=== PATIENT | female | born 1970 | race Caucasian/White ===

== ENCOUNTER 2019-02-21 22:35 | Inpatient (IN) | payer BC ==
[~2019-02-21] VITALS: Ht 165.1 cm; Wt 68.5 kg
--- NOTE | 2019-02-21 22:35 | NUR ---
PT TO ER C/O HIGH BP X 5 DAYS. PT SBP NOTED >180 DR FLETCHER NOTIFIED. PT CHANGED INTO GOWN AND CONNECTED TO MONITOR/ PT DENIES ANY CHEST PAIN, SKIN WARM AND DRY. PT C/O PAIN TO ABDOMINE SURGICAL SITE. NO BLEEDING NOTED. WILL CONT TO MONITOR PT.
[2019-02-21] MEDS ORDERED: hydrALAZINE HCL IV 20 MG VIAL IV ONE (23:30)
[2019-02-21] MEDS ORDERED: hydrALAZINE HCL IV 20 MG VIAL ONE (23:36)
[2019-02-21 23:48] LABS: BASOPHILS % (AUTO) 0.2 % (0.0-2.0); EOSINOPHILS % (AUTO) 0.5 % (0.0-6.0); HEMATOCRIT 34 % (33-45); HEMOGLOBIN 11.1 g/dL (11.5-14.8); LYMPHOCYTES # (AUTO) 0.9 /CMM (0.8-4.8); LYMPHOCYTES % (AUTO) 6.6 % (20.0-44.0); MEAN CORPUSCULAR HGB CONC 33 g/dl (31.0-36.0); MEAN CORPUSCULAR VOLUME 90 fL (82-100); MONOCYTES # (AUTO) 1.3 /CMM (0.1-1.30); MONOCYTES % (AUTO) 10.2 % (2.0-12.0); NEUTROPHILS # (AUTO) 10.9 /CMM (1.8-8.9); NEUTROPHILS % (AUTO) 82.5 % (43.0-81.0); PLATELET COUNT (AUTO) 475 /CMM (150-450); RED BLOOD CELL COUNT(AUTO) 3.77 MIL/uL (4.0-5.2); WHITE BLOOD COUNT (AUTO) 13.2 K/uL (4.3-11.0)
[2019-02-21 23:54] LABS: CALCIUM, SERUM 8.5 mg/dL (8.5-10.1); CREATININE 0.6 mg/dL (0.6-1.3); POTASSIUM 4.4 mmol/L (3.5-5.1)
[2019-02-22 00:10] LABS: ALBUMIN 2.8 g/dL (3.4-5.0); BILIRUBIN,TOTAL 0.4 mg/dL (0.2-1.0); TOTAL PROTEIN, SERUM 7.3 g/dL (6.4-8.2)
[2019-02-22] MEDS ORDERED: ASPIRIN 81 MG TAB.CHEW PO ONE (00:30)
[2019-02-22] MEDS ORDERED: ASPIRIN 81 MG TAB.CHEW ONE (01:03)
[2019-02-22] MEDS ORDERED: KETOROLAC TROMETHAMINE INJ 30 MG/ML VIAL ONE (01:15)
[2019-02-22] MEDS ORDERED: hydrALAZINE HCL IV 20 MG VIAL IV PRN (03:00)
[2019-02-22] MEDS ORDERED: ACETAMINOPHEN 325 MG TABLET PO PRN (03:00)
[2019-02-22] MEDS ORDERED: MORPHINE SULFATE INJ 2 MG/ML DISP.SYRIN IV PRN (03:00)
[2019-02-22] MEDS ORDERED: MAG HYDROX/AL HYDROX/SIMETH 30 ML UDC PO PRN (03:00)
[2019-02-22] MEDS ORDERED: TEMAZEPAM 15 MG CAPSULE PO PRN (03:00)
[2019-02-22] MEDS ORDERED: ONDANSETRON HCL/PF 4 MG/2 ML VIAL IVP PRN (03:00)
[2019-02-22] MEDS ORDERED: MAGNESIUM HYDROXIDE 30 ML UDC PO PRN (03:00)
--- NOTE | 2019-02-22 03:15 | NUR ---
PT RESTING COMFORTABLY IN [facility]. NO SIGNS OF DISTRESS NOTED. WILL CONTINUE TO MONITOR PT.
--- NOTE | 2019-02-22 03:18 | NUR ---
URINE COLLECTED AND SENT TO LAB
[2019-02-22 03:45] LABS: APPEARANCE,URINE Clear (CLEAR); BILIRUBIN,URINE Negative (NEGATIVE); BLOOD, URINE Negative Ery/uL (NEGATIVE); COLOR,URINE Yellow (YELLOW); KETONES,URINE >=160 (NEGATIVE); LEUKOCYTE ESTERASE ,URINE Negative (NEGATIVE); NITRITE, URINE Negative (NEGATIVE); PROTEIN,URINE Trace mg/dl (NEGATIVE); UGLUCOSE Negative (NEGATIVE); UROBILINOGEN,URINE 0.2 EU/dL (0.2)
[2019-02-22 03:56] LABS: BACTERIA,URINE None seen /HPF (None Seen); RBC,URINE 0-2 /HPF (0-2); WBC,URINE 0-2 /HPF (0-3)
[2019-02-22 03:57] LABS: SQUAMOUS EPITHELIAL CELL,UR Moderate /HPF (None Seen)
--- NOTE | 2019-02-22 05:26 | NUR ---
BED 113-1
[2019-02-22 05:48] VITALS: BP 151/77
--- NOTE | 2019-02-22 05:52 | NUR ---
PT TRANSFERED TO [facility] VIA [facility]. ACLS PROTOCOL
--- NOTE | 2019-02-22 06:00 | NUR ---
TELE ADMISSION NOTE PATIENT RECEIVED IN [facility]. PATIENT ABLE TO WALK TO BED, GAIT STEADY. PATIENT A/O X 4. SR HR IN THE 90'S ON THE MONITOR. PATIENT DENIES SOB// INCREASED WOB. PATIENT C/O MILD CHEST PAIN 3/10 LIKE A SMALL HAMSTER SITTING ON HER CHEST. IT DOES NOT RADIATE. PATIENT HAS L HAND 20 G RUNNING 75 ML/HR. NO S/S OF INFILTRATION/INFECTION. PATIENT V/S STABLE. PATIENT C/O MILD ABD PAIN RELATED TO AMBULATING TO THE BED. PATIENT ORIENTED TO THE UNIT CARE PLAN DISCUSSED GOALS IMITATED. SAFETY PRECAUTIONS IN PLACE. CALL LIGHT USE INSTRUCTED RN WILL ENDORSE TO AM POC FOR EDOUARD.
[2019-02-22 06:13] LABS: THYROID STIMULATING HORMONE 1.483 uIU/mL (0.358-3.74)
[2019-02-22] MEDS: IV NS 0.9% 1,000 ML IV PRN ×2 (06:14→17:17)
--- NOTE | 2019-02-22 07:30 | NUR ---
TELE EN AM NOTES PATIENT IN BED, AAO X 4, ON ROOM AIR, NO SOB, NOT IN ANY DISTRESS, SR HR 91 ON MONITOR. WITH 2/10 TOLERABLE PAIN AT ABDOMEN, SURGICAL SITE [S/P HYSTERECTOMY February], AGGRAVATED MORE ON AMBULATING. NS AT 75 ML/HR RUNNING TO LEFT HAND G 20, SITE CLEAR, NO SKIN ISSUES. NPO FOR NOW UNTIL SEEN BY SUPERVISOR SAMPLE. BRP, CALL IGHT WITHIN REACH, CARE PLAN DISCUSSED WITH PATIENT VERBALIZED UNDERSTANDING. SAFETY PRECAUTIONS IN PLACE. WILL CONTINUE TO MONITOR.
[2019-02-22 08:00] VITALS: BP 137/82
[2019-02-22] MEDS ORDERED: OXYC-162 PO (08:27)
[2019-02-22] MEDS ORDERED: DOCU-141 PO (08:27)
[2019-02-22] MEDS: PANTOPRAZOLE 40 MG TABLET.DR PO SCH (08:51)
[2019-02-22] MEDS: CARVEDILOL 3.125 MG TABLET PO SCH ×2 (08:51→17:18)
--- NOTE | 2019-02-22 09:30 | NUR ---
IRRIGATION TAX ASSESSOR COLLECTOR NOTES DUE MEDS GIVEN
[2019-02-22 12:00] VITALS: BP_SYST 140; BP_SYST 161; BP_DIAS 80; BP_DIAS 96
--- NOTE | 2019-02-22 12:10 | NUR ---
AGRICULTURE SCIENTIST NOTES DR. SHEEHAN AT BEDSIDE EARLIER.
[2019-02-22 12:36] LABS: IRON, SERUM 16 ug/dl (50-175); TOTAL IRON BINDING CAPACITY 366 ug/dl (250-450)
[2019-02-22 12:54] LABS: FERRITIN 85 ng/mL (8-388)
[2019-02-22 16:00] VITALS: BP 156/73
[2019-02-22] MEDS ORDERED: DOCUSATE SODIUM 100 MG CAPSULE PO PRN (17:00)
[2019-02-22] MEDS ORDERED: BISACODYL SUPP (10 MG) 10 MG/SUPP.RECT SUPP.RECT RC PRN (17:00)
[2019-02-22] MEDS ORDERED: SENNOSIDES 8.6 MG TABLET PO PRN (17:00)
--- NOTE | 2019-02-22 18:42 | NUR ---
BYPRODUCTS EXTRACTOR CLOSING NOTES PATIENT RESTING IN BED, AAO X 4, ON ROOM AIR, NO SOB, NOT IN ANY DISTRESS, SR HR 91 ON MONITOR. WITH 2/10 TOLERABLE PAIN AT ABDOMEN, SURGICAL SITE [S/P HYSTERECTOMY February], AGGRAVATED MORE BY AMBULATING. NS AT 75 ML/HR RUNNING TO LEFT HAND G 20, SITE CLEAR, CARDIAC DIET. BRP, CALL LIGHT WITHIN REACH, SAFETY PRECAUTIONS IN PLACE. ALL NEEDS MET. NO OTHER SIGNIFICANT CHANGE IN CONDITION. WILL ENDORSE TO NEXT SHIFT FOR EDOUARD.
[2019-02-22 20:00] VITALS: BP 156/83
--- NOTE | 2019-02-22 20:00 | NUR ---
MS RN NOTE PT IN BED AWAKE. A/O X 4, NO SOB, NO DISTRESS OR DISCOMFORT NOTED. DENIES PAIN. SURGICAL SITE WITH STERI STRIPE INTACT. ALL NEEDS ATTENDED. SIDE RAILS UP X 2 AND CALL LIGHT WITHIN REACH. CONTINUE TO MONITOR.
--- NOTE | 2019-02-22 20:00 | NUR ---
LOCOMOTIVE ENGINEER NOTE ON TELE MONITOR SR HR 89.
--- NOTE | 2019-02-22 21:30 | NUR ---
MS RN NOTE PT C/O PAIN IN LOWER ABD 04/28 AND ALSO C/O INSOMNIA. NORCO 1 TAB PO GIVEN FOR PAIN AND RESTORIL 15 MG PO GIVEN FOR SLEEP. CONTINUE TO MONITOR.
[2019-02-22] MEDS: HYDROCODONE/APAP 5/325MG 1 EACH TABLET PO PRN (21:32)
--- NOTE | 2019-02-22 22:30 | NUR ---
MS RN NOTE PAIN SUBSIDED 2/10 AND PT IS FALLING ASLEEP. NO DISTRESS OR DISCOMFORT NOTED.
[2019-02-23] VITALS: BP 141/79
[2019-02-23] MEDS: HYDROCODONE/APAP 5/325MG 1 EACH TABLET PO PRN ×2 (02:51→12:30)
[2019-02-23 04:00] VITALS: BP 120/64
[2019-02-23 06:27] LABS: BASOPHILS % (AUTO) 0.3 % (0.0-2.0); EOSINOPHILS % (AUTO) 1.6 % (0.0-6.0); HEMATOCRIT 31 % (33-45); HEMOGLOBIN 10.4 g/dL (11.5-14.8); LYMPHOCYTES # (AUTO) 0.9 /CMM (0.8-4.8); LYMPHOCYTES % (AUTO) 8.2 % (20.0-44.0); MEAN CORPUSCULAR HGB CONC 33 g/dl (31.0-36.0); MEAN CORPUSCULAR VOLUME 89 fL (82-100); MONOCYTES # (AUTO) 1.1 /CMM (0.1-1.30); MONOCYTES % (AUTO) 9.6 % (2.0-12.0); NEUTROPHILS # (AUTO) 8.8 /CMM (1.8-8.9); NEUTROPHILS % (AUTO) 80.3 % (43.0-81.0); PLATELET COUNT (AUTO) 427 /CMM (150-450); RED BLOOD CELL COUNT(AUTO) 3.53 MIL/uL (4.0-5.2)
--- NOTE | 2019-02-23 06:34 | NUR ---
MS RN NOTE PT IN BED AWAKE, C/O PAIN IN LOWER ABD, NORCO 1 TAB PO GIVEN. FOR PAIN. IVF INFUSING WELL, NO S/S OF INFILTRATION NOTED. ALL NEEDS ATTENDED. SIDE RAILS UP X 2 AND CALL LIGHT WITHIN REACH. WILL ENDORSE TO DAY SHIFT NURSE FOR CONTINUE TO CARE.
[2019-02-23 06:57] LABS: ALBUMIN 2.3 g/dL (3.4-5.0); BILIRUBIN,TOTAL 0.3 mg/dL (0.2-1.0); CALCIUM, SERUM 8.5 mg/dL (8.5-10.1); CREATININE 0.5 mg/dL (0.6-1.3); MAGNESIUM 2.2 mg/dL (1.8-2.4); PHOSPHORUS 2.8 mg/dL (2.5-4.9); POTASSIUM 3.8 mmol/L (3.5-5.1); TOTAL PROTEIN, SERUM 6.2 g/dL (6.4-8.2)
--- NOTE | 2019-02-23 07:30 | NUR ---
DIRECTOR TALENT AM NOTES PATIENT IN BED, AAO X 4, ON ROOM AIR, NO SOB, NOT IN ANY DISTRESS, SR HR 82 ON MONITOR. WITH 2/10 TOLERABLE PAIN AT ABDOMEN, SURGICAL SITE [S/P HYSTERECTOMY February], AGGRAVATED MORE ON AMBULATING. NS AT 75 ML/HR RUNNING TO LEFT HAND G 20, SITE CLEAR, NO SKIN ISSUES. CARDIAC DIET. BRP, CALL IGHT WITHIN REACH, CARE PLAN DISCUSSED WITH PATIENT VERBALIZED UNDERSTANDING. SAFETY PRECAUTIONS IN PLACE. WILL CONTINUE TO MONITOR.
[2019-02-23 08:00] VITALS: BP 151/81
[2019-02-23] MEDS: PANTOPRAZOLE 40 MG TABLET.DR PO SCH (08:09)
[2019-02-23] MEDS: CARVEDILOL 3.125 MG TABLET PO SCH (08:10)
[2019-02-23] MEDS ORDERED: ASPIRIN 81 MG TAB.CHEW PO SCH (09:00)
--- NOTE | 2019-02-23 09:30 | NUR ---
HYDRAULICS ENGINEER NOTES DUE MEDS GIVEN.
[2019-02-23 12:00] VITALS: BP 151/90
[2019-02-23 12:13] LABS: *SPE A/G RATIO 0.8 (0.7-1.7); *SPE ALBUMIN 2.8 g/dL (2.9-4.4); *SPE ALPHA-1-GLOBULIN 0.5 g/dL (0.0-0.4); *SPE ALPHA-2-GLOBULIN 1.1 g/dL (0.4-1.0); *SPE GLOBULIN, TOTAL 3.3 g/dL (2.2-3.9); *SPE M-SPIKE Not Observed g/dL (Not Observed); *SPEGAMMA GLOBULIN 0.7 g/dL (0.4-1.8)
[2019-02-23] MEDS ORDERED: CARV12.52 PO (14:34)
[2019-02-23] MEDS ORDERED: FERR325T23 PO (14:37)
--- NOTE | 2019-02-23 15:27 | NUR ---
METAL BED ASSEMBLER NOTES PATIENT DISCHARGE TO HOME TODAY PER MD IN STABLE CONDITION. PROVIDED DC INSTRUCTIONS, MED RECON LIST/PRESCRIPTIONS AND HEALTH TEACHINGS. PATIENT TO FOLLOW UP WITH PCP IN 1-2 WEEKS AND WILL MAKE OWN APPOINTMENT. LEFT HAND IV ACCESS REMOVED. NO BLEEDING. DRESSING IN PLACE. ALL BELONGINGS CHECKED AND RETURNED. ALL PAPER WORKS SIGNED. ACCOMPANIED BY THIS NURSE TO THE LOBBY AND WILL GO HOME VIA [employer]. Addendum: 02/23/19 at 1548 by HERMAN HSU RN ADDENDUM PATIENT REQUESTED TO SKIP PICTURE ON HER ABDOMEN SINCE IT WAS TAKEN YESTERDAY WELL. STATED, DONT WORRY I AM TO SEE MY SURGEON THIS WEEK.
[2019-02-23] MEDS ORDERED: CARVEDILOL 12.5 MG TABLET PO SCH (18:00)
== END 2019-02-23 15:27 | disposition home or self-care (01) | DRG 282 ==
LOC: ER 22:38 → TELE1 02-22 05:37 → MEDSG1 02-23 11:45
PROVIDERS: ADMIT Registered Nurse; ATTEND Registered Nurse
DX: I16.0 Hypertensive urgency (principal); I21.A1 Myocardial infarction type 2; I25.10 Atherosclerotic heart disease of native coronary artery without angina pectoris; I10 Essential (primary) hypertension; D50.9 Iron deficiency anemia, unspecified; Z90.710 Acquired absence of both cervix and uterus
CPT/HCPCS: 36415; 71045-TC; 74150-TC; 80053-TC; 80061-TC; 81000-TC; 82533; 82728-TC; 83540-TC; 83690-TC; 83735-TC; 84100-TC; 84155; 84165; 84443-TC; 84484-TC; 84702-TC; 85025-TC; 85730-TC; 87081-TC; 93307-TC; G0378; J0360; J1885; J2270; J7030

== ENCOUNTER 2019-03-05 17:35 | Emergency (ER) | payer BC ==
[~2019-03-05] VITALS: Ht 165.1 cm; Wt 65.3 kg
[~2019-03-05 17:35] MED LIST: CARV12.52 PO; DOCU-141 PO; FERR325T23 PO; OXYC-162 PO
--- NOTE | 2019-03-05 17:52 | NUR ---
C/O HI BP W/ DIZZINESS, SOB & CHEST PRESSURE. HYSTERECTOMY ON 02/17/19. "NEVER HAD PROBLEMS WITH BP MEDS UNTIL SURGERY". PT IS AOX4, AMB, RR EVEN AND UNLABORED ON RA. FAMILY AT BEDSIDE. HOOKED TO MONITOR AND MADE COMFORTABLE. READY FOR EVAL.
--- NOTE | 2019-03-05 18:40 | NUR ---
PT REFUSING IV. CINDI POTTS NOTIFIED.
[2019-03-05] MEDS ORDERED: DOCU-141 PO (18:48)
[2019-03-05] MEDS ORDERED: CARV12.5 PO (18:48)
[2019-03-05] MEDS ORDERED: ACET-73 PO (18:48)
[2019-03-05] MEDS ORDERED: FERR325T23 PO (18:48)
[2019-03-05 19:01] LABS: CALCIUM, SERUM 9.5 mg/dL (8.5-10.1); CREATININE 0.6 mg/dL (0.6-1.3)
[2019-03-05 19:34] LABS: BASOPHILS # (AUTO) 0.1 /CMM (0.0-0.2); EOSINOPHILS % (AUTO) 1.8 % (0.0-6.0); HEMATOCRIT 38 % (33-45); HEMOGLOBIN 12.6 g/dL (11.5-14.8); LYMPHOCYTES # (AUTO) 1.2 /CMM (0.8-4.8); LYMPHOCYTES % (AUTO) 20.5 % (20.0-44.0); MEAN CORPUSCULAR HGB CONC 33 g/dl (31.0-36.0); MEAN CORPUSCULAR VOLUME 87 fL (82-100); MONOCYTES # (AUTO) 0.6 /CMM (0.1-1.30); MONOCYTES % (AUTO) 9.2 % (2.0-12.0); NEUTROPHILS % (AUTO) 67.5 % (43.0-81.0); PLATELET COUNT (AUTO) 607 /CMM (150-450); RED BLOOD CELL COUNT(AUTO) 4.33 MIL/uL (4.0-5.2)
[2019-03-05] MEDS ORDERED: CARVEDILOL 6.25 MG TABLET ONE (19:57)
[2019-03-05] MEDS ORDERED: CARVEDILOL 6.25 MG TABLET PO ONE (20:00)
--- NOTE | 2019-03-05 20:38 | NUR ---
Patient discharged to home in stable condition. Written and verbal after care instructions given. Patient verbalizes understanding of instruction.
[2019-03-05 20:43] VITALS: BP 175/100
== END 2019-03-05 20:30 | disposition home or self-care (01) ==
LOC: ER 17:39
DX: I10 Essential (primary) hypertension (principal); R07.89 Other chest pain; Z90.710 Acquired absence of both cervix and uterus; Z88.1 Allergy status to other antibiotic agents; Z60.2 Problems related to living alone
CPT/HCPCS: 36415; 71045-TC; 80048-TC; 84484-TC; 85025-TC

== ENCOUNTER 2021-12-10 20:17 | Emergency (ER) | payer BC ==
[~2021-12-10] VITALS: Ht 165.1 cm; Wt 59.9 kg
[~2021-12-10 20:17] MED LIST changes: +ACET-73 PO; +CARV12.5 PO; -CARV12.52 PO; -OXYC-162 PO
--- NOTE | 2021-12-10 20:45 | NUR ---
BIBS C/O HIGH BP, FELL 2DAYS AGO FRACTURED L RIB. SEEN AT URGENT CARE TODAY BP 150'S SYSTOLIC, THEN DENTIST AFTER SAID SYSTOLIC WAS 200. IN ER 188/123. PATIENT ALERT AND ORIENTED X3. AMBULATORY WITH NON LABORED BREATHING.
--- NOTE | 2021-12-10 21:30 | NUR ---
blood sample obtained and sent to lab
[2021-12-10 21:50] LABS: BASOPHILS % (AUTO) 0.3 % (0.0-2.0); EOSINOPHILS % (AUTO) 0.4 % (0.0-6.0); HEMATOCRIT 38 % (33-45); HEMOGLOBIN 12.7 g/dL (11.5-14.8); LYMPHOCYTES # (AUTO) 0.8 K/uL (0.8-4.8); LYMPHOCYTES % (AUTO) 6.6 % (20.0-44.0); MEAN CORPUSCULAR HGB CONC 33 g/dl (31.0-36.0); MEAN CORPUSCULAR VOLUME 93 fL (82-100); MONOCYTES # (AUTO) 0.4 K/uL (0.1-1.30); MONOCYTES % (AUTO) 3.3 % (2.0-12.0); NEUTROPHILS # (AUTO) 10.8 K/uL (1.8-8.9); NEUTROPHILS % (AUTO) 89.4 % (43.0-81.0); PLATELET COUNT (AUTO) 289 K/uL (150-450); WHITE BLOOD COUNT (AUTO) 12.1 K/uL (4.3-11.0)
[2021-12-10 23:44] LABS: CALCIUM, SERUM 8.9 mg/dL (8.5-10.1); CARBON DIOXIDE 21 mmol/L (21-32); CHLORIDE 100 mmol/L (98-107); CREATININE 0.5 mg/dL (0.6-1.3); GLUCOSE 134 mg/dL (74-106); POTASSIUM 4.6 mmol/L (3.5-5.1); SODIUM SERUM 132 mmol/L (136-145); UREA NITROGEN, BLOOD 23 mg/dL (7-18)
[2021-12-11] MEDS ORDERED: HYDR12.55 PO (00:22)
[2021-12-11 00:52] VITALS: BP 158/80
--- NOTE | 2021-12-11 00:52 | NUR ---
Patient discharged to home in stable condition. Written and verbal after care instructions given. Patient verbalizes understanding of instruction.
== END 2021-12-11 00:53 | disposition home or self-care (01) ==
LOC: ER 20:19
DX: I10 Essential (primary) hypertension (principal); Z88.1 Allergy status to other antibiotic agents; Z79.899 Other long term (current) drug therapy
CPT/HCPCS: 36415; 71045-TC; 80048-TC; 84484-TC; 85025-TC

== ENCOUNTER 2024-06-18 15:08 | Emergency (ER) | payer BC ==
[~2024-06-18] VITALS: Ht 165.1 cm; Wt 69.4 kg
[~2024-06-18 15:08] MED LIST changes: +HYDR12.55 PO
--- NOTE | 2024-06-18 15:25 | NUR ---
The patient is sent by pcp for high blood pressure with nausea and headache. The patient rates pain 4/10. Respiration regular and unlabored. Denies SOB. The patient is attached to the monitor.
[2024-06-18] MEDS ORDERED: METOCLOPRAMIDE HCL 10 MG/2 ML VIAL ONE (16:27)
[2024-06-18] MEDS ORDERED: diphenhydrAMINE HCL 50 MG/ML VIAL ONE (16:27)
[2024-06-18] MEDS ORDERED: KETOROLAC TROMETHAMINE 15 MG/ML VIAL ONE (16:27)
[2024-06-18] MEDS: diphenhydrAMINE HCL 50 MG/ML VIAL IV ONE (16:45)
[2024-06-18] MEDS: IV NS 0.9% 500 ML BAG IV ONE (16:45)
[2024-06-18] MEDS: METOCLOPRAMIDE HCL 10 MG/2 ML VIAL IV ONE (16:45)
[2024-06-18] MEDS: KETOROLAC TROMETHAMINE 15 MG/ML VIAL IV ONE (16:48)
--- NOTE | 2024-06-18 17:07 | NUR ---
IV removed. Catheter intact and site benign. Pressure and 4x4 applied to site. No bleeding noted.Patient discharged to home in stable condition. Written and verbal after care instructions given. Patient verbalizes understanding of instruction.
[2024-06-18 17:08] VITALS: BP 152/96; TEMP 97.9; O2SAT 98
== END 2024-06-18 17:09 | disposition home or self-care (01) ==
LOC: ER 15:16
DX: I10 Essential (primary) hypertension (principal); G43.909 Migraine, unspecified, not intractable, without status migrainosus; R11.0 Nausea; Z60.2 Problems related to living alone; Z88.8 Allergy status to other drugs, medicaments and biological substances
CPT/HCPCS: 99284; 96374; 96375; J1200; J2765; J7040; J1885

== ENCOUNTER 2024-07-05 14:47 | Emergency (ER) | payer BC ==
[~2024-07-05] VITALS: Ht 165.1 cm; Wt 70.3 kg
[2024-07-05 15:32] LABS: BASOPHILS % (AUTO) 0.9 % (0.0-2.0); EOSINOPHILS # (AUTO) 0.1 K/uL (0.0-0.7); EOSINOPHILS % (AUTO) 1.6 % (0.0-6.0); HEMATOCRIT 41 % (33-45); HEMOGLOBIN 13.8 g/dL (11.5-14.8); LYMPHOCYTES # (AUTO) 1.1 K/uL (0.8-4.8); MEAN CORPUSCULAR HEMOGLOBIN 33 PG (26.0-33.0); MEAN CORPUSCULAR HGB CONC 34 g/dl (31.0-36.0); MEAN CORPUSCULAR VOLUME 96 fL (82-100); MONOCYTES # (AUTO) 0.5 K/uL (0.1-1.30); MONOCYTES % (AUTO) 9.9 % (2.0-12.0); NEUTROPHILS % (AUTO) 63.6 % (43.0-81.0); PLATELET COUNT (AUTO) 226 K/uL (150-450); RED BLOOD CELL COUNT(AUTO) 4.26 MIL/uL (4.0-5.2); RED CELL DISTRIBUTION WIDTH 13.2 % (11.5-15.0); WHITE BLOOD COUNT (AUTO) 4.8 K/uL (4.3-11.0)
[2024-07-05 15:39] LABS: CALCIUM, SERUM 9.2 mg/dL (8.5-10.1); CARBON DIOXIDE 28 mmol/L (21-32); CHLORIDE 106 mmol/L (98-107); CREATININE 0.6 mg/dL (0.6-1.3); GLUCOSE 101 mg/dL (74-106); POTASSIUM 4.3 mmol/L (3.5-5.1); SODIUM SERUM 138 mmol/L (136-145); UREA NITROGEN, BLOOD 11 mg/dL (7-18)
[2024-07-05] MEDS: hydrALAZINE HCL IV 20 MG VIAL IV ONE (15:59)
[2024-07-05] MEDS ORDERED: hydrALAZINE HCL IV 20 MG VIAL ONE (16:00)
[2024-07-05] MEDS ORDERED: ACETAMINOPHEN ES 500 MG TABLET ONE (19:27)
[2024-07-05] MEDS: ACETAMINOPHEN ES 500 MG TABLET PO ONE (19:39)
[2024-07-05] MEDS ORDERED: SUMATRIPTAN SUCCINATE 6 MG/0.5 ML VIAL SQ ONE (19:49)
[2024-07-05] MEDS: SUMATRIPTAN SUCCINATE 6 MG/0.5 ML VIAL SQ ONE (19:53)
[2024-07-05 21:07] VITALS: BP 139/86; TEMP 98; O2SAT 99
== END 2024-07-05 21:08 | disposition home or self-care (01) ==
LOC: ER 14:52
DX: I10 Essential (primary) hypertension (principal); R07.9 Chest pain, unspecified; G43.909 Migraine, unspecified, not intractable, without status migrainosus; Z88.8 Allergy status to other drugs, medicaments and biological substances; Z60.2 Problems related to living alone
CPT/HCPCS: 99285; 96374; 71045; 93005; 85025; 80048; 36415; 84484 ×2; 96372; J0360; J3030